=== PATIENT | female | born 1940 | race Hispanic/Latino ===

== ENCOUNTER 2018-06-22 11:09 | Inpatient (IN) | payer MEDICARE ==
[~2018-06-22] VITALS: Ht 152.4 cm; Wt 55.5 kg
--- NOTE | 2018-06-22 11:11 | NUR ---
HOME CARE MANAGER RN SERVICE OFFERED TO PATIENT. PATIENT DECLINED
--- OUTSIDE RECORDS SUMMARY | 2018-06-22 11:12 | XMS REPORT | Clinical Summary ---
Author Author [facility] Organization [facility] Address Unknown Phone Unavailable Care Team Providers Care Step Down Specialist Name Role Phone FallMateo morales Gladys PCP Allergies Comments Active Allergy Reactions Severity Noted Date Cortisone 11/24/2017 Meperidine 11/24/2017 Morphine 11/24/2017 Penicillins Swelling 11/24/2017 Medications End Date Status Medication Sig Dispensed Refills Start Date Active carboxymethylcellulose Apply to 0 sodium (REFRESH OPHT) eye(s). Active ferrous sulfate 325 (65 Take 325 mg 0 FE) MG tablet by mouth daily with breakfast. 11/24/2017 Discontinued fLUoxetine (PROZAC) 10 MG Take 10 mg by 0 capsule mouth daily. 11/24/2017 Discontinued meclizine (ANTIVERT) 25 Take 25 mg by 0 MG tablet mouth 3 (three) times daily as needed. 11/24/2017 Discontinued nystatin (MYCOSTATIN) Apply 0 100,000 unit/gram cream topically 2 (two) times daily. 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 Last Filed Vital Signs Time Taken Vital Sign Reading 11/25/2017 11:22 AM CDT Blood Pressure 107/58 11/25/2017 11:22 AM CDT Pulse 79 11/25/2017 10:52 AM CDT Temperature 36.2 C (97.2 F) 11/25/2017 11:22 AM CDT Respiratory Rate 18 11/25/2017 11:22 AM CDT Oxygen Saturation 100% - Inhaled Oxygen - Concentration 11/24/2017 10:16 AM CDT Weight 45.4 kg (100 lb) 11/24/2017 10:16 AM CDT Height 152.4 cm (5') 11/24/2017 10:16 AM CDT Body Mass Index 19.53 Plan of Treatment Not on file Procedures Comments Procedure Name Priority Date/Time Associated Diagnosis REPAIR,EXTROPIAN 11/25/2017 Ectropion, unspecified EXTENSIVE 11:41 AM CDT ectropion type, unspecified laterality after 06/21/2017 Results Not on fileafter 06/21/2017 Insurance Payer Benefit Subscriber ID Type Phone Address Plan / Group [employer] CIGNA xxxxxxxxxxx [facility] [employer] Contracted ALL
[2018-06-22] MEDS ORDERED: CEFTRIAXONE SOD 1 GM/NS 50 ML 50 ML IV STA (11:14)
[2018-06-22] MEDS ORDERED: ALBUTEROL SULF 0.083% NEB SOLN 3 ML NEB NEB STA (11:14)
[2018-06-22] MEDS ORDERED: SODIUM CHLORIDE 0.9% 500ML 500 ML IV STA (11:14)
[2018-06-22] MEDS ORDERED: IPRATROPIUM BROMIDE 0.02% 2.5 ML NEB NEB STA (11:14)
--- NOTE | 2018-06-22 12:06 | Diagnostic Imaging Report ---
EXAMINATION: PA and lateral views of the chest. COMPARISON: None CLINICAL HISTORY: Bronchitis, cough DISCUSSION: Lines/tubes: None. Lungs: The lungs are well inflated and clear. No pneumonia or pulmonary edema. Pleura: No pleural effusion or pneumothorax. Heart and mediastinum: Heart size normal. Calcified densities in the mediastinum may reflect lymph nodes. Bones and soft tissues: No acute bony abnormalities. IMPRESSION: No acute cardiopulmonary abnormalities. Signed by: Dr. Donovan Murillo M.D. on 06/22/2018 12:03 PM
[2018-06-22 12:24] LABS: BASOPHILS % 0.3 % (0.0-1.0); HEMATOCRIT 28.4 % (34.2-44.1); HEMOGLOBIN 8.8 g/dL (12.0-16.0); LYMPHOCYTES # (AUTO) 0.6 (1.0-3.2); LYMPHOCYTES % 17.4 % (18.0-39.1); MEAN CORPUSCULAR HEMOGLOBIN 31.9 pg (28-32); MEAN CORPUSCULAR VOLUME 102.9 fL (81-99); MONOCYTES # (AUTO) 0.4 (0.2-0.8); MONOCYTES % 13.7 % (4.4-11.3); NEUTROPHILS # (AUTO) 2.2 (2.1-6.9); PLATELET COUNT 167 x10e3/uL (140-360); RED BLOOD COUNT 2.76 x10e6/uL (3.6-5.1); RED CELL DISTRIBUTION WIDTH 13.3 % (11.7-14.4)
[2018-06-22 12:34] LABS: ALBUMIN 3.3 g/dL (3.5-5.0); ALBUMIN/GLOBULIN RATIO 0.9 (0.8-2.0); ANION GAP 9.6 mmol/L (8-16); CALCIUM 9.4 mg/dL (8.4-10.2); CREATININE, SERUM 0.98 mg/dL (0.57-1.11); POTASSIUM 4.6 mmol/L (3.5-5.1)
[2018-06-22] MEDS ORDERED: ACETAMINOPHEN/CODEINE ELIX 120-12 MG/5 ML UDC PO ONE (12:45)
[2018-06-22] MEDS ORDERED: ACETAMINOPHEN/CODEINE 300MG - 30MG TAB PO ONE (12:45)
[2018-06-22 12:54] LABS: CREATINE KINASE MB 1.9 ng/mL (0-5.0); INR 0.96; PROTHROMBIN TIME 13.7 seconds (11.9-14.5); THYROID STIMULATING HORMONE 2.301 uIU/mL (0.350-4.940)
[2018-06-22 12:55] LABS: PARTIAL THROMBOPLASTIN TIME 33.6 seconds (23.8-35.5)
--- OUTSIDE RECORDS SUMMARY | 2018-06-22 13:47 | XMS REPORT ---
Author Author [facility] Address Unknown Phone Unavailable Care Team Providers Care Helmet Binder Name Role Phone Facundo MILTON Unavailable Unavailable Problems This patient has no known problems. Allergies, Adverse Reactions, Alerts This patient has no known allergies or adverse reactions. Medications This patient has no known medications. Results Test Description Test Time Test Comments Text Results Atomic Results Result Comments CHEST 2 VIEWS 2018-06-22 12:02:00 [place] [address] Patient Name: AYSHA WILCOX MR #: [id number] : 1940 Age/Sex: 77/F Req #: [id number] Adm Physician: Ordered by: YASMIN SPENCER LEAD MAN OVER ALL DIES IN PATTERN SHOP Report #: [id number] Location: ER Room/Bed: Procedure: [id number] DX/CHEST 2 VIEWS Exam Date: 06/22/18 Exam Time: 1145 REPORT STATUS: Signed EXAMINATION: PA and lateral views of the chest. COM PARISON: None CLINICAL HISTORY: Bronchitis, cough DISCUSSION: Lines/tubes: None. Lungs: The lungs are well inflated and clear. No pneumonia or pulmonary edema. Pleura: No pleural effusion or pneumothorax. Heart and mediastinum: Heart size normal. Calcified densities in the mediastinum may reflect lymph nodes. Bones and soft tissues: No acute bony abnormalities. IMPRESSION: No acute cardiopulmonary abnormalities. Signed by: Dr. Veronika Gandhi M.D. on 06/22/2018 12:03 PM Dictated By: VERONIKA GANDHI MD [id number] Transcribed By: KARI on 06/22/181202 COPY TO: YASMIN SPENCER NP
--- OUTSIDE RECORDS SUMMARY | 2018-06-22 13:47 | XMS REPORT | Clinical Summary ---
Author Author [facility] Organization [facility] Address Unknown Phone Unavailable Care Team Providers Care Surveyor Helper Name Role Phone FallMateo morales Gladys PCP [...] Plan / Group [employer] C[employer] xxxxxxxxxxx [facility] [employer] Contracted ALL
[2018-06-22 13:55] LABS: CLARITY,URINE SL CLOUDY (CLEAR); COLOR,URINE YELLOW (YELLOW); KETONES,URINE NEGATIVE (NEGATIVE); LEUKOCYTE ESTERASE ,URINE NEGATIVE (NEGATIVE); NITRITE,URINE NEGATIVE (NEGATIVE); PROTEIN,URINE DIPSTICK 1+ (NEGATIVE)
[2018-06-22 13:56] LABS: BILIRUBIN,URINE NEGATIVE (NEGATIVE); URINE UROBILINOGEN 1 mg/dL (0.2 - 1)
[2018-06-22 14:10] LABS: BACTERIA,URINE MANY /HPF; EPITHELIAL CELLS,URINE MODERATE /LPF
[2018-06-22 16:25] VITALS: BP 107/53
--- NOTE | 2018-06-22 16:45 | NUR ---
Patient arrived from ER via stretcher. She is awake and alert. POC discussed with patient and grand daughter. Vital signs stable. Bed in lowest position locked, and call long within reach.
[2018-06-22] MEDS: SODIUM CHLORIDE 0.9% 1000ML 1,000 ML IV SCH ×2 (17:02→22:21)
[2018-06-22 17:46] VITALS: BP 107/53
[2018-06-22 17:58] VITALS: BP 107/53
--- NOTE | 2018-06-22 19:01 | NUR ---
Report given to oncoming shift. Call long within reach.
[2018-06-22] MEDS ORDERED: ALBUTEROL/IPRATROPIUM 3 ML NEB NEB PRN (19:15)
[2018-06-22 20:00] VITALS: BP 107/53
[2018-06-22 20:10] VITALS: BP 122/58
[2018-06-22] MEDS: BENZONATATE 100 MG CAP PO SCH (22:11)
[2018-06-22] MEDS: GUAIFENESIN/DEXTROMETHORPHAN LIQD 5 ML UDC PO SCH (22:11)
[2018-06-23] VITALS (9 sets, daily range): BP systolic 113–180; BP diastolic 56–73
[2018-06-23] MEDS: SODIUM CHLORIDE 0.9% 1000ML 1,000 ML IV SCH ×2 (04:24→20:41)
[2018-06-23 05:19] LABS: BASOPHILS % 0.3 % (0.0-1.0); EOSINOPHILS % 0.6 % (0.0-6.0); HEMATOCRIT 24.4 % (34.2-44.1); HEMOGLOBIN 7.7 g/dL (12.0-16.0); LYMPHOCYTES # (AUTO) 1.3 (1.0-3.2); LYMPHOCYTES % 36.4 % (18.0-39.1); MEAN CORPUSCULAR HEMOGLOBIN 32.6 pg (28-32); MEAN CORPUSCULAR HGB CONC 31.6 g/dL (31-35); MEAN CORPUSCULAR VOLUME 103.4 fL (81-99); MONOCYTES # (AUTO) 0.5 (0.2-0.8); MONOCYTES % 13.2 % (4.4-11.3); NEUTROPHILS # (AUTO) 1.7 (2.1-6.9); NEUTROPHILS % 48.6 % (38.7-80.0); PLATELET COUNT 155 x10e3/uL (140-360); RED BLOOD COUNT 2.36 x10e6/uL (3.6-5.1); RED CELL DISTRIBUTION WIDTH 13.2 % (11.7-14.4)
[2018-06-23 05:40] LABS: ALANINE AMINOTRANSFERASE 16 IU/L (0-55); ALBUMIN 2.9 g/dL (3.5-5.0); ALKALINE PHOSPHATASE 49 IU/L (40-150); ANION GAP 10.9 mmol/L (8-16); BLOOD UREA NITROGEN 17 mg/dL (7-26); BUN/CREATININE RATIO 22 (6-25); CALCIUM 8.6 mg/dL (8.4-10.2); CARBON DIOXIDE 27 mmol/L (22-29); CHLORIDE 103 mmol/L (98-107); CREATININE, SERUM 0.78 mg/dL (0.57-1.11); EST GLOMERULAR FILTRATION RATE > 60 ML/MIN (60-); GLUCOSE 98 mg/dL (74-118); POTASSIUM 3.9 mmol/L (3.5-5.1); SODIUM 137 mmol/L (136-145)
[2018-06-23] MEDS: GUAIFENESIN/DEXTROMETHORPHAN LIQD 5 ML UDC PO SCH ×3 (05:42→22:00)
[2018-06-23] MEDS: BENZONATATE 100 MG CAP PO SCH ×3 (05:42→22:00)
--- NOTE | 2018-06-23 06:48 | History and Physical ---
PRIMARY CARE PHYSICIAN: Dr. Fall CHIEF COMPLAINT: Cough, shortness of breath and wheezing. HISTORY OF PRESENT ILLNESS: A 77-year-old woman with a history of cigarette use, now developing cough, shortness of breath and wheezing. Came to the hospital for evaluation and found to have influenza A. She is admitted for further evaluation and management. PAST MEDICAL HISTORY: Cigarette use, osteoarthritis. PAST SURGICAL HISTORY: Carpal tunnel release surgery, eye surgery, and appendectomy. ALLERGIES: PER ELECTRONIC MEDICAL RECORD. FAMILY HISTORY/SOCIAL HISTORY: Patient is . She smokes half a pack of cigarettes per day. Occasional alcohol. No illicits. MEDICATIONS: Per electronic medical record. REVIEW OF SYSTEMS: Denies any chest pain. Denies any leg pain, back pain, skin rash. Denies any vision changes. Denies any headache. PHYSICAL EXAMINATION VITAL SIGNS: Have been reviewed. GENERAL: A tired-appearing woman resting in bed. HEENT: Anicteric. Pupils respond to light. No oral lesions. CARDIOVASCULAR: Normal S1 and S2. LUNGS: She has reduced breath sounds throughout. She has scattered wheezing and rhonchi. SKIN: Dry. PSYCHIATRIC: Flat affect. NEUROLOGICAL: Alert and oriented times 3. Moving extremities. LABS: Reviewed. MEDICATIONS: Reviewed. ASSESSMENT: This is a 77-year-old woman with: 1. Acute influenza A infection. 2. Acute bronchitis. 3. Cigarette use. 4. Acute kidney injury. 5. Hyperbilirubinemia. 6. Hyponatremia. 7. Microcytic anemia which is moderate. 8. Urinary tract infection. PLAN 1. Rehydrate the patient. We will reduce the IV fluids to 60 mL an hour. 2. Will use IV azithromycin. 3. Will treat her cough with antitussive medication. 4. Will start Tamiflu. 5. Will start loratadine. 6. Will use zinc lozenges. 7. Order physical therapy. 8. Will obtain an anemia panel. 9. Will use SCD for DVT prophylaxis and Pepcid for GI prophylaxis. 10. Disposition. Monitor closely. Supplemental oxygen. Job#: [id number] [place]
[2018-06-23] MEDS: LEVOFLOXACIN 500MG/D5W 100ML 100 ML IV SCH (06:55)
[2018-06-23] MEDS: FAMOTIDINE 20 MG TAB PO SCH ×2 (07:34→16:06)
[2018-06-23] MEDS: AZITHROMYCIN 500MG/NS 250 ML 250 ML IV SCH (07:34)
[2018-06-23] MEDS: LORATADINE 10 MG TAB PO SCH (08:11)
[2018-06-23] MEDS ORDERED: OSELTAMIVIR PHOSPHATE 75 MG CAP PO SCH (09:00)
[2018-06-23 09:05] LABS: FERRITIN 37708.52 ng/mL (4.63-204.00)
--- NOTE | 2018-06-23 10:15 | NUR ---
Called Dr. Brayden Diaz informed him patient brought her own Tamiflu capsule, and is requesting to take her own medication. Received orders patient may take her own Tamiflu.
--- NOTE | 2018-06-23 10:50 | NUR ---
SOCIAL WORK INITIAL ASSESSMENT USED CULTURAL LINK [place] [id number] Ski Molder to bedside to discuss plan of care with patient/family. CM/SW role and care transitions discussed. Anticipated discharge plan discussed along with duration of care. CM/SW discussed patients right to make decisions in care. CM/SW work hours given. Patient lives: IN OWN TOWNHOUSE BY SELF Admit/Transfer: VIA ED FROM HOME POA/Emergency contact: SON HERBERTH [phone] AND GRANDSON HERBERTH BIRD [phone] Current/Previous Home Health: NONE PCP/Follow-up Care: CORIN Current/Previous DME: NONE Other Services: NONE Employment Status: RETIRED Areas of Concerns: NONE Referral Needs: NONE Education Needs: NONE IMM/HARDEN given and signed (if applicable): HARDEN Goal for discharge: RETURN HOME INDEPENDENTLY CM/SW left business card at the bedside with contact information. Name and number was also written on the patients whiteboard. Patient verbalized understanding of discussion. CM will follow-up with ongoing discharge and transition of care needs.
[2018-06-23] MEDS: OSELTAMIVIR PHOSPHATE 75 MG CAP PO SCH (17:34)
--- NOTE | 2018-06-23 19:10 | NUR ---
REPORT RECEIVED FROM OFF GOING NURSE, PT RESTING IN BED ALERT AND ORIENTED, NO DISTRESS NOTED, DENIES NEEDS, FAMILY AT BEDSIDE, CALL LIGHT IN REACH, INSTRUCTED TO CALL WITH NEEDS
[2018-06-24] VITALS (8 sets, daily range): BP systolic 110–170; BP diastolic 55–78
[2018-06-24] MEDS: GUAIFENESIN/DEXTROMETHORPHAN LIQD 5 ML UDC PO SCH ×3 (06:00→21:55)
[2018-06-24] MEDS: BENZONATATE 100 MG CAP PO SCH ×3 (06:00→21:55)
[2018-06-24] MEDS: AZITHROMYCIN 500MG/NS 250 ML 250 ML IV SCH (06:30)
--- NOTE | 2018-06-24 07:00 | NUR ---
PT RESTING IN BED ALERT AND ORIENTED, NO DISTRESS NOTED, IV INFUSING PER ORDER, CALL LIGHT IN REACH, BED ALARM ACTIVATED, INSTRUCTED TO CALL WITH NEEDS
--- NOTE | 2018-06-24 07:18 | NUR ---
Discharge Summary Principal Dx: ASSESSMENT: This is a 77-year-old woman with: 1. Acute influenza A infection. 2. Acute bronchitis. 3. Cigarette use. 4. Acute kidney injury. 5. Hyperbilirubinemia. 6. Hyponatremia. 7. Microcytic anemia which is moderate. 8. Urinary tract infection. Secondary dx: 1.cig use cc and HPI; refer to H&P Hospital Course: ASSESSMENT: This is a 77-year-old woman with: 1. Acute influenza A infection. 2. Acute bronchitis. 3. Cigarette use. 4. Acute kidney injury. 5. Hyperbilirubinemia. 6. Hyponatremia. 7. Microcytic anemia which is moderate. 8. Urinary tract infection. PLAN 1. Rehydrate the patient. We will reduce the IV fluids to 60 mL an hour. 2. Will use IV azithromycin. 3. Will treat her cough with antitussive medication. 4. Will start Tamiflu. 5. Will start loratadine. 6. Will use zinc lozenges. 7. Order physical therapy. 8. Will obtain an anemia panel. 9. Will use SCD for DVT prophylaxis and Pepcid for GI prophylaxis. 10. Disposition. Monitor closely. Supplemental oxygen. Anemia panel normal; T.bili back to normal; d/c home; d/c location: home d/c meds; see MAR condition: improving f/u PCP 1 week d/c time>35mins Michelet Diaz MD, PhD.
[2018-06-24] MEDS ORDERED: Guaifenesin/Dextromethorphan PO (07:20)
[2018-06-24] MEDS ORDERED: LEVAQUIN500 MG PO (07:20)
[2018-06-24] MEDS ORDERED: TAMIFLU75 MG PO (07:20)
[2018-06-24] MEDS ORDERED: TESSALON PERLE100 MG PO (07:20)
[2018-06-24] MEDS ORDERED: FAMOTIDINE20 MG PO (07:20)
[2018-06-24] MEDS: FAMOTIDINE 20 MG TAB PO SCH ×2 (08:05→16:14)
[2018-06-24] MEDS: LORATADINE 10 MG TAB PO SCH (08:05)
[2018-06-24 08:07] LABS: BASOPHILS % 0.4 % (0.0-1.0); EOSINOPHILS # (AUTO) 0.1 (0.0-0.4); EOSINOPHILS % 1.7 % (0.0-6.0); HEMATOCRIT 26.1 % (34.2-44.1); LYMPHOCYTES # (AUTO) 1.8 (1.0-3.2); LYMPHOCYTES % 39.4 % (18.0-39.1); MEAN CORPUSCULAR HEMOGLOBIN 31.5 pg (28-32); MEAN CORPUSCULAR HGB CONC 30.7 g/dL (31-35); MEAN CORPUSCULAR VOLUME 102.8 fL (81-99); MONOCYTES # (AUTO) 0.5 (0.2-0.8); NEUTROPHILS # (AUTO) 2.2 (2.1-6.9); NEUTROPHILS % 46.6 % (38.7-80.0); PLATELET COUNT 165 x10e3/uL (140-360); RED BLOOD COUNT 2.54 x10e6/uL (3.6-5.1); RED CELL DISTRIBUTION WIDTH 13.2 % (11.7-14.4)
--- NOTE | 2018-06-24 08:10 | NUR ---
New verbal order recvd from Dr Diaz to DC Discharge order
[2018-06-24 08:29] LABS: EOSINOPHILS % (MANUAL) 3 % (0-7); LYMPHOCYTES % (MANUAL) 46 % (19-48); MONOCYTES % (MANUAL) 6 % (3.4-9.0); NEUTROPHILS % (MANUAL) 39 % (40-74); PLATELET ESTIMATE ADEQUATE; PLATELET MORPHOLOGY COMMENT NORMAL; RBC MORPHOLOGY COMMENT ABNORMAL
[2018-06-24] MEDS: OSELTAMIVIR PHOSPHATE 75 MG CAP PO SCH ×2 (09:00→16:14)
[2018-06-24] MEDS: LEVOFLOXACIN 500MG/D5W 100ML 100 ML IV SCH (10:32)
[2018-06-24] MEDS ORDERED: ACETAMINOPHEN 325 MG TAB PO PRN (15:30)
--- NOTE | 2018-06-24 15:32 | NUR ---
Patient c/o lower abdominal pain rating 6/10, no tenderness, notified to Dr Joe hawley recvd.
--- NOTE | 2018-06-24 18:51 | NUR ---
patient in bed, watching TV, denies any pain no distress noted
[2018-06-24] MEDS: SODIUM CHLORIDE 0.9% 1000ML 1,000 ML IV SCH (21:55)
[2018-06-24] MEDS: CALCIUM CARBONATE 500 MG CHEWABLE TABS PO SCH (21:55)
[2018-06-25 01:45] VITALS: BP 113/56
--- NOTE | 2018-06-25 04:36 | NUR ---
IM- Progress Note O/N ;still coughing; sob REVIEW OF SYSTEMS: Denies any chest pain. Denies any leg pain, back pain, skin rash. Denies any vision changes. Denies any headache. PHYSICAL EXAMINATION VITAL SIGNS: Have been reviewed. GENERAL: A tired-appearing woman resting in bed. HEENT: Anicteric. Pupils respond to light. No oral lesions. CARDIOVASCULAR: Normal S1 and S2. LUNGS: She has reduced breath sounds throughout. She has scattered wheezing and rhonchi. SKIN: Dry. PSYCHIATRIC: Flat affect. NEUROLOGICAL: Alert and oriented times 3. Moving extremities. LABS: Reviewed. MEDICATIONS: Reviewed. ASSESSMENT: This is a 77-year-old woman with: 1. Acute influenza A infection. 2. Acute bronchitis. 3. Cigarette use. 4. Acute kidney injury. 5. Hyperbilirubinemia. 6. Hyponatremia. 7. Microcytic anemia which is moderate. 8. Urinary tract infection. PLAN 1. Rehydrate the patient. We will reduce the IV fluids to 60 mL an hour. 2. Will use IV azithromycin. 3. Will treat her cough with antitussive medication. 4. Will start Tamiflu. 5. Will start loratadine. 6. Will use zinc lozenges. 7. Order physical therapy. 8. Will obtain an anemia panel. 9. Will use SCD for DVT prophylaxis and Pepcid for GI prophylaxis. 10. Disposition. Monitor closely. Supplemental oxygen. 06/24/18 still sob and coughing; keep in hospital for IV tx. 06/25 start nebs and chlorseptic spray; inpatient; cont care Michelet Diaz MD, PhD.
[2018-06-25] MEDS: LEVOFLOXACIN 500MG/D5W 100ML 100 ML IV SCH (05:25)
[2018-06-25] MEDS: SODIUM CHLORIDE 0.9% 1000ML 1,000 ML IV SCH ×2 (05:25→21:00)
[2018-06-25] MEDS: CALCIUM CARBONATE 500 MG CHEWABLE TABS PO SCH ×3 (05:25→21:40)
[2018-06-25] MEDS: BENZONATATE 100 MG CAP PO SCH ×3 (05:25→21:40)
[2018-06-25] MEDS: GUAIFENESIN/DEXTROMETHORPHAN LIQD 5 ML UDC PO SCH ×3 (05:25→21:40)
[2018-06-25] MEDS ORDERED: CHLORASEPTIC SPRAY 177 ML BTL MM PRN (06:00)
[2018-06-25 06:05] VITALS: BP 120/67
[2018-06-25] MEDS: AZITHROMYCIN 500MG/NS 250 ML 250 ML IV SCH (06:38)
[2018-06-25] MEDS: ALBUTEROL/IPRATROPIUM 3 ML NEB NEB SCH ×3 (06:51→19:35)
--- NOTE | 2018-06-25 07:02 | NUR ---
Received patient mid fowlers position, side rails upx3, call light within reach. AAOX3 to time, person, place. Respirations even and unlabored. Denies pain at this time. Instructed to use call light for assistance. Voiced understanding. Will continue to monitor.
[2018-06-25 07:25] VITALS: BP 122/69
[2018-06-25] MEDS: LORATADINE 10 MG TAB PO SCH (07:58)
[2018-06-25] MEDS: OSELTAMIVIR PHOSPHATE 75 MG CAP PO SCH ×2 (07:58→16:14)
[2018-06-25] MEDS: FAMOTIDINE 20 MG TAB PO SCH ×2 (07:58→16:14)
[2018-06-25 11:24] VITALS: BP 155/73
--- NOTE | 2018-06-25 13:25 | NUR ---
report received from Kristine. Patient arriving to unit on wheelchair
--- NOTE | 2018-06-25 13:30 | NUR ---
patient arrived on floor via wheelchair, alert and oriented in no distress. Call long within reach, bed in lowest position and family at bedside.
--- NOTE | 2018-06-25 14:26 | NUR ---
Report given to Essie DILLON of patient's status. Taken via wheelchair to Room 209. Accompanied by family member. AAOX3 to time, person, place. No s/s of acute distress noted.All personal belongings taken with patient. Notified Castillo (next of kin) of transfer. Addendum: 06/25/18 at 1510 by MARK YBARRA RN Transferred to 209 at 1326
--- NOTE | 2018-06-25 14:45 | NUR ---
Visit made by the Spiritual Care Department Pastoral Visitor, Carolyn Ignacio. PV provided pastoral presence, communion, hospitality, and supportive listening. Pastoral Visitor informed pt/family of the scope of Global Marketing Operations Manager Services and availability. YASIR MONSIVAIS Instructional Services Specialist Spiritual Care Department O: [phone] Pager: [phone] ([phone] number calling from)
[2018-06-25 15:54] VITALS: BP 97/53
--- NOTE | 2018-06-25 19:15 | NUR ---
report given to night baker nurse, patient aware of shift change and call long within reach.
--- NOTE | 2018-06-25 19:59 | NUR ---
PATIENT RECEIVED. PATIENT RESTING IN BED, AAOX3. RESP EVEN AND UNLABORED. NO ACTE DISTRESS NOTED. FAMILY AT BED SIDE. CALL LIGHT WITHIN REACH. INSTRUCT TO CALL FOR ASSISTANCE. BED LOW/LOCKED. CONTINUE TO MONITOR CLOSELY
[2018-06-25 20:00] VITALS: BP 133/63
[2018-06-26] VITALS (8 sets, daily range): BP systolic 97–133; BP diastolic 48–63
[2018-06-26] MEDS: ALBUTEROL/IPRATROPIUM 3 ML NEB NEB SCH ×4 (00:45→20:15)
[2018-06-26] MEDS: GUAIFENESIN/DEXTROMETHORPHAN LIQD 5 ML UDC PO SCH ×3 (05:36→20:49)
[2018-06-26] MEDS: CALCIUM CARBONATE 500 MG CHEWABLE TABS PO SCH ×3 (05:36→20:49)
[2018-06-26] MEDS: BENZONATATE 100 MG CAP PO SCH ×3 (05:36→20:49)
[2018-06-26] MEDS: LEVOFLOXACIN 500MG/D5W 100ML 100 ML IV SCH (05:37)
[2018-06-26] MEDS: AZITHROMYCIN 500MG/NS 250 ML 250 ML IV SCH (06:49)
[2018-06-26 08:42] LABS: BASOPHILS % 0.2 % (0.0-1.0); EOSINOPHILS # (AUTO) 0.2 (0.0-0.4); EOSINOPHILS % 3.6 % (0.0-6.0); HEMOGLOBIN 7.5 g/dL (12.0-16.0); LYMPHOCYTES # (AUTO) 1.3 (1.0-3.2); LYMPHOCYTES % 24.9 % (18.0-39.1); MEAN CORPUSCULAR HEMOGLOBIN 33.2 pg (28-32); MEAN CORPUSCULAR HGB CONC 32.9 g/dL (31-35); MEAN CORPUSCULAR VOLUME 100.9 fL (81-99); MONOCYTES # (AUTO) 0.6 (0.2-0.8); MONOCYTES % 10.8 % (4.4-11.3); NEUTROPHILS # (AUTO) 3.1 (2.1-6.9); NEUTROPHILS % 59.2 % (38.7-80.0); PLATELET COUNT 213 x10e3/uL (140-360); RED BLOOD COUNT 2.26 x10e6/uL (3.6-5.1); RED CELL DISTRIBUTION WIDTH 13.7 % (11.7-14.4)
[2018-06-26 08:47] LABS: HEMATOCRIT 22.8 % (34.2-44.1)
[2018-06-26] MEDS: LORATADINE 10 MG TAB PO SCH (08:52)
[2018-06-26] MEDS: FAMOTIDINE 20 MG TAB PO SCH ×2 (08:52→17:10)
[2018-06-26] MEDS: OSELTAMIVIR PHOSPHATE 75 MG CAP PO SCH ×2 (08:52→17:10)
[2018-06-26 09:01] LABS: ANION GAP 12.6 mmol/L (8-16); BLOOD UREA NITROGEN 8 mg/dL (7-26); BUN/CREATININE RATIO 10 (6-25); CALCIUM 8.5 mg/dL (8.4-10.2); CARBON DIOXIDE 28 mmol/L (22-29); CHLORIDE 103 mmol/L (98-107); CREATININE, SERUM 0.79 mg/dL (0.57-1.11); EST GLOMERULAR FILTRATION RATE > 60 ML/MIN (60-); GLUCOSE 110 mg/dL (74-118); POTASSIUM 3.6 mmol/L (3.5-5.1); SODIUM 140 mmol/L (136-145)
--- NOTE | 2018-06-26 09:52 | NUR ---
notified of Hgb 7.5, no new orders received at this time.
[2018-06-26 10:46] LABS: EOSINOPHILS % (MANUAL) 6 % (0-7); LYMPHOCYTES % (MANUAL) 39 % (19-48); MONOCYTES % (MANUAL) 11 % (3.4-9.0); NEUTROPHILS % (MANUAL) 41 % (40-74)
[2018-06-26 10:47] LABS: ANISOCYTOSIS SLIGHT; HYPOCHROMASIA MODERATE; PLATELET ESTIMATE ADEQUATE; PLATELET MORPHOLOGY COMMENT NORMAL; POIKILOCYTOSIS SLIGHT; RBC MORPHOLOGY COMMENT NORMAL
[2018-06-26] MEDS: SODIUM CHLORIDE 0.9% 1000ML 1,000 ML IV SCH (13:34)
--- NOTE | 2018-06-26 19:21 | NUR ---
bedside rounds done with oncoming RN, call light within patient reach. family at bedside.
--- NOTE | 2018-06-26 19:30 | NUR ---
PATIENT RECEIVED. PATIENT RESTING IN BED, AAOX3. RESP EVEN AND UNLABORED. NO ACTE DISTRESS NOTED. CALL LIGHT WITHIN REACH. INSTRUCT TO CALL FOR ASSISTANCE. BED LOW/LOCKED. CONTINUE TO MONITOR CLOSELY
[2018-06-27] VITALS: BP 124/58
[2018-06-27] MEDS: ALBUTEROL/IPRATROPIUM 3 ML NEB NEB SCH ×2 (00:30→07:00)
[2018-06-27] MEDS: CALCIUM CARBONATE 500 MG CHEWABLE TABS PO SCH (05:13)
[2018-06-27] MEDS: BENZONATATE 100 MG CAP PO SCH (05:13)
[2018-06-27] MEDS: AZITHROMYCIN 500MG/NS 250 ML 250 ML IV SCH (05:13)
[2018-06-27] MEDS: GUAIFENESIN/DEXTROMETHORPHAN LIQD 5 ML UDC PO SCH (05:13)
[2018-06-27] MEDS: LEVOFLOXACIN 500MG/D5W 100ML 100 ML IV SCH (06:28)
--- NOTE | 2018-06-27 07:05 | NUR ---
RCD PT AT BED PT IS ALERT AND ORIENTED PT RESTING ON BED IV PATENT BED LOW AND LOCKED CALL LIGHT IN REACH
--- NOTE | 2018-06-27 07:15 | NUR ---
IM- Progress Note O/N ;still coughing; sob REVIEW OF SYSTEMS: Denies any chest pain. Denies any leg pain, back pain, skin rash. Denies any vision changes. Denies any headache. PHYSICAL EXAMINATION VITAL SIGNS: Have been reviewed. GENERAL: A tired-appearing woman resting in bed. HEENT: Anicteric. Pupils respond to light. No oral lesions. CARDIOVASCULAR: Normal S1 and S2. LUNGS: She has reduced breath sounds throughout. She has scattered wheezing and rhonchi. SKIN: Dry. PSYCHIATRIC: Flat affect. NEUROLOGICAL: Alert and oriented times 3. Moving extremities. LABS: Reviewed. MEDICATIONS: Reviewed. ASSESSMENT: This is a 77-year-old woman with: 1. Acute influenza A infection. 2. Acute bronchitis. 3. Cigarette use. 4. Acute kidney injury. 5. Hyperbilirubinemia. 6. Hyponatremia. 7. Microcytic anemia which is moderate. 8. Urinary tract infection. PLAN 1. Rehydrate the patient. We will reduce the IV fluids to 60 mL an hour. 2. Will use IV azithromycin. 3. Will treat her cough with antitussive medication. 4. Will start Tamiflu. 5. Will start loratadine. 6. Will use zinc lozenges. 7. Order physical therapy. 8. Will obtain an anemia panel. 9. Will use SCD for DVT prophylaxis and Pepcid for GI prophylaxis. 10. Disposition. Monitor closely. Supplemental oxygen. 06/24/18 still sob and coughing; keep in hospital for IV tx. 06/25 start nebs and chlorseptic spray; inpatient; cont care 06/26 improving; d/w grandson at bedside 06/27 still quite deconditioned and coughing; snf eval. Michelet Diaz MD, PhD.
[2018-06-27] MEDS: FAMOTIDINE 20 MG TAB PO SCH (07:30)
[2018-06-27 08:00] VITALS: BP 124/58
[2018-06-27] MEDS: SODIUM CHLORIDE 0.9% 1000ML 1,000 ML IV SCH (08:01)
[2018-06-27 08:53] VITALS: BP 144/65
[2018-06-27] MEDS: OSELTAMIVIR PHOSPHATE 75 MG CAP PO SCH (09:00)
[2018-06-27] MEDS: LORATADINE 10 MG TAB PO SCH (09:00)
--- NOTE | 2018-06-27 09:30 | NUR ---
SON CAME AND ASKED WE NEED TO GO HOME WE DONT NEED ANY [facility] FACILITY SO PAGED AND TALKED DR QUEZADA HE AGREED AND GOT THE DISCHARGE ORDER
--- NOTE | 2018-06-27 11:19 | NUR ---
FILIPINO IMM GIVEN WITH EXPLANATION. PATIENT WITH NO QUESTIONS AT THIS TIME. SIGNED COPY PLACED IN CHART. COPY OF SIGNED DOCUMENT GIVEN TO PATIENT AND PLACED IN FOLDER. CM INFORMATION GIVEN TO PATIENT FOR ANY FURTHER QUESTIONS OR CONCERNS.
[2018-06-27 12:28] VITALS: BP 141/65
--- NOTE | 2018-06-27 13:02 | NUR ---
CM SPOKE TO PATIENT FAMILY REGARDING DISCHARGE NEEDS. PATIENT REFUSED PLACEMENT TO A FACILITY BUT WANTED HOME HEALTH SERVICES FOR BATHING AND LIGHT HOUSE WORK. PATIENT AND PATIENT FAMILY INFORMED THAT HOME HEALTH DOES NOT SERVICES THOSE TASKS. PATIENT AND PATIENT FAMILY EDUCATED ON HOME HEALTH SERVICES AND PROVIDER SERVICES. CM GAVE FAMILY RESOURCES GUIDE FOR ASSISTED WELL RESOURCES TO A COMPANY FOR 4 HOUR FREE PROVIDER CARE. PATIENT FAMILY THANKED CM. NO FURTHER QUESTIONS AT THIS TIME. CM LEFT CONTACT INFORMATION FOR FURTHER QUESTIONS. PATIENT GRAND-DAUGHTER AND PATIENT FRIEND CALLING MD NOW FOR FOLLOW UP APPOINTMENT FOR Tuesday.
--- NOTE | 2018-06-27 13:11 | NUR ---
PT WENT HOME IN SAFE CONDITION WITH HER DAUGHTER
== END 2018-06-27 13:00 | disposition home or self-care (01) | DRG 194 ==
LOC: ER 11:09 → ERHOLD 13:44 → IMCU 16:30 → OBSVTOIN 06-25 04:56 → MED/SURG2 06-25 13:28
PROVIDERS: ADMIT Internal Medicine; ATTEND Internal Medicine
DX: J09.X2 Influenza due to identified novel influenza A virus with other respiratory manifestations (principal); N17.9 Acute kidney failure, unspecified; E87.1 Hypo-osmolality and hyponatremia; N39.0 Urinary tract infection, site not specified; J20.9 Acute bronchitis, unspecified; Z72.0 Tobacco use; E80.6 Other disorders of bilirubin metabolism; D50.9 Iron deficiency anemia, unspecified; Z88.5 Allergy status to narcotic agent; Z88.0 Allergy status to penicillin; Z88.8 Allergy status to other drugs, medicaments and biological substances
CPT/HCPCS: 36415; 71046; 80048; 80053; 81001; 82550; 82553; 82607; 82728; 83540; 83605; 83690; 84443; 84466; 84484; 85025; 85610; 85730; 87040; 87086; 87400; 93005; 94640; 96361; 97139; 99284; G0378; J0456; J0696; J1956; J7030; J7040

== ENCOUNTER → 2019-07-18 | Day surgery (SDC) | payer MEDICARE ==
[2019-07-16 13:46] LABS: BASOPHILS # (AUTO) 0.1 (0.0-0.1); BASOPHILS % 0.7 % (0.0-1.0); EOSINOPHILS # (AUTO) 0.1 (0.0-0.4); EOSINOPHILS % 1.2 % (0.0-6.0); HEMATOCRIT 33.2 % (34.2-44.1); HEMOGLOBIN 10.2 g/dL (12.0-16.0); LYMPHOCYTES # (AUTO) 1.6 (1.0-3.2); LYMPHOCYTES % 19.9 % (18.0-39.1); MEAN CORPUSCULAR HEMOGLOBIN 32.4 pg (28-32); MEAN CORPUSCULAR HGB CONC 30.7 g/dL (31-35); MEAN CORPUSCULAR VOLUME 105.4 fL (81-99); MONOCYTES # (AUTO) 0.6 (0.2-0.8); MONOCYTES % 7.6 % (4.4-11.3); NEUTROPHILS # (AUTO) 5.8 (2.1-6.9); NEUTROPHILS % 70.4 % (38.7-80.0); PLATELET COUNT 273 x10e3/uL (140-360); RED BLOOD COUNT 3.15 x10e6/uL (3.6-5.1); RED CELL DISTRIBUTION WIDTH 13.6 % (11.7-14.4)
[~2019-07-18] MED LIST: BUPIVACAINE HCL 0.5% INJ 30 ML VIAL INJ ONE; CLINDAMYCIN PHOS 900MG/ 50ML 50 ML IV ONE; DEXAMETHASONE SOD PHOS INJ 4 MG/ML VIAL ONE; EPHEDRINE SULFATE INJ 50 MG/ML VIAL ONE; EYE DROPS15 M1; FAMOTIDINE20 MG PO; FENTANYL CITRATE/PF 100MCG/2 ML INJ ONE; Guaifenesin/Dextromethorphan PO; LEVAQUIN500 MG PO; LIDOCAINE HCL 2% LOCAL INJ 5 ML SDV VIAL INJ ONE; ONDANSETRON HCL INJ 2MG/ML 2ML 2 MG/ML VIAL ONE; PROPOFOL IV EMULSION 10 MG/ML 20 ML VIAL ONE; SEVOFLURANE INHAL SOLN 250 ML PEN BTL ONE; TAMIFLU75 MG PO; TESSALON PERLE100 MG PO
[2019-07-18 10:35] VITALS: BP 116/61
--- NOTE | 2019-07-27 23:29 | Operative Report ---
DATE OF PROCEDURE: 07/18/2019 SURGEON: Marck Weathers MD PREOPERATIVE DIAGNOSIS: Right index and ring finger trigger fingers. POSTOPERATIVE DIAGNOSIS: Right index and ring finger trigger fingers. OPERATIONS AND PROCEDURES PERFORMED: The patient underwent: 1. Release of the right index finger trigger finger. 2. Release of the right ring finger trigger. TOXICS PROGRAM OFFICER: JEFF Stanley ANESTHESIA: General endotracheal intubation anesthesia. IV FLUIDS: Per the anesthesia record. BRIEF DESCRIPTION OF THE PATIENT'S OPERATIVE PROCEDURE: Ms. Chance was taken the operating room, placed in supine position on the operating table. Following induction of general anesthesia as well as endotracheal intubation, the patient's right upper extremity was examined under anesthesia. She was found to have a normal-appearing hand. Flexion, extension of the index and ring fingers, however, were found catching and locking of the fingers with passive range of motion of fingers. The patient had palpable nodules at the level of the A1 mike for the index finger and the ring finger. The patient's upper extremity was prepped and draped in a standard surgical fashion. The case was began by creating an incision over the A1 mike for the index finger. This incision was carried through skin only. Blunt dissection was used to deepen the incision and the retractors were inserted into the wound to protect vital neurovascular structures. The flexor tendon was thereby isolated and the A1 mike was easily identified. The A1 mike was then incised in line with the skin incision releasing the mike completely. The finger was then placed through range of motion and the tendon no longer caught or locked. Evaluation of the tendon demonstrated no gross abnormalities other than nodular tenosynovitis. This wound was copiously irrigated and closed in a single layer fashion. Attention was then turned to the patient's ring finger. The skin was incised overlying the A1 mike. This incision again was carried through skin only. Blunt dissection was used to deepen the incision to the level of the flexor tendon in the A1 mike. Retractors were placed in the wound, protecting the vital neurovascular structures. The A1 mike was then incised in line with the skin incision. The finger was placed through range of motion. There was no further mechanical block to motion of the finger. The tendon was evaluated and found to have nodular tenosynovitis. There were no other gross abnormalities. This wound was irrigated and closed in a single layer fashion. Sterile dressings were applied and the patient was then awakened and taken to postanesthesia care in stable condition. Migdalia Kang was necessary as family readiness support assistant for this case, both prepping and draping the patient as well as retraction of soft tissue and closure of the wound to allow this case to be successful. MD PAULETTE Carlos/ENEDELIA /[id number]
== END | disposition home or self-care (01) ==
LOC: OR 06:11
PROVIDERS: ATTEND Specialist
DX: M65.321 Trigger finger, right index finger (principal); M65.341 Trigger finger, right ring finger; M19.041 Primary osteoarthritis, right hand; M81.0 Age-related osteoporosis without current pathological fracture; I10 Essential (primary) hypertension; D64.9 Anemia, unspecified; F17.210 Nicotine dependence, cigarettes, uncomplicated; Z88.6 Allergy status to analgesic agent; Z88.0 Allergy status to penicillin; Z88.8 Allergy status to other drugs, medicaments and biological substances; Z01.812 Encounter for preprocedural laboratory examination
CPT/HCPCS: 26055 ×2; 36415; 85025; J1100; J2001; J2405; J2704; J3010

== ENCOUNTER 2023-04-02 19:48 | Inpatient (IN) | payer MEDICARE ==
[~2023-04-02] VITALS: Ht 152.4 cm; Wt 32.7 kg
[~2023-04-02 19:48] MED LIST changes: -BUPIVACAINE HCL 0.5% INJ 30 ML VIAL INJ ONE; -CLINDAMYCIN PHOS 900MG/ 50ML 50 ML IV ONE; -DEXAMETHASONE SOD PHOS INJ 4 MG/ML VIAL ONE; -EPHEDRINE SULFATE INJ 50 MG/ML VIAL ONE; -FENTANYL CITRATE/PF 100MCG/2 ML INJ ONE; -LIDOCAINE HCL 2% LOCAL INJ 5 ML SDV VIAL INJ ONE; -ONDANSETRON HCL INJ 2MG/ML 2ML 2 MG/ML VIAL ONE; -PROPOFOL IV EMULSION 10 MG/ML 20 ML VIAL ONE; -SEVOFLURANE INHAL SOLN 250 ML PEN BTL ONE
[2023-04-02] MEDS ORDERED: SODIUM CHLORIDE 0.9% 500ML 500 ML IV ONE (20:00)
[2023-04-02 20:17] LABS: BASOPHILS % 0.5 % (0.0-1.0); EOSINOPHILS # (AUTO) 0.1 (0.0-0.4); EOSINOPHILS % 1.8 % (0.0-6.0); HEMATOCRIT 29.4 % (34.2-44.1); HEMOGLOBIN 9.4 g/dL (12.0-16.0); LYMPHOCYTES # (AUTO) 1.6 (1.0-3.2); LYMPHOCYTES % 20.5 % (18.0-39.1); MEAN CORPUSCULAR HEMOGLOBIN 33.1 pg (28-32); MEAN CORPUSCULAR VOLUME 103.5 fL (81-99); MONOCYTES # (AUTO) 0.9 (0.2-0.8); MONOCYTES % 10.9 % (4.4-11.3); NEUTROPHILS # (AUTO) 5.2 (2.1-6.9); PLATELET COUNT 249 x10e3/uL (140-360); RED BLOOD COUNT 2.84 x10e6/uL (3.6-5.1); RED CELL DISTRIBUTION WIDTH 14.1 % (11.7-14.4); WHITE BLOOD COUNT 7.86 x10e3/uL (4.8-10.8)
[2023-04-02 20:38] LABS: ALBUMIN 3.8 g/dL (3.5-5.0); ALBUMIN/GLOBULIN RATIO 1.1 (0.8-2.0); ANION GAP 15.4 mmol/L (8-16); CREATININE, SERUM 1.89 mg/dL (0.57-1.11)
[2023-04-02 20:43] LABS: CLARITY,URINE CLEAR (CLEAR); COLOR,URINE YELLOW (YELLOW); LEUKOCYTE ESTERASE ,URINE TRACE (NEGATIVE)
[2023-04-02 20:44] LABS: KETONES,URINE NEGATIVE (NEGATIVE); NITRITE,URINE NEGATIVE (NEGATIVE); PROTEIN,URINE DIPSTICK NEGATIVE (NEGATIVE); URINE UROBILINOGEN 0.2 mg/dL (0.2 - 1)
[2023-04-02 20:48] LABS: POTASSIUM 6.4 mmol/L (3.5-5.1)
[2023-04-02 21:19] LABS: BACTERIA,URINE MODERATE /HPF; EPITHELIAL CELLS,URINE MANY /LPF
[2023-04-02 21:31] LABS: ANION GAP 14.8 mmol/L (8-16); CREATININE, SERUM 1.95 mg/dL (0.57-1.11)
[2023-04-02 21:33] LABS: POTASSIUM 6.8 mmol/L (3.5-5.1)
[2023-04-02] MEDS ORDERED: SODIUM BICARBONATE 8.4% INJ 50 ML SYR IV STA (21:35)
[2023-04-02] MEDS ORDERED: DEXTROSE 50% SYRINGE 50 ML IV STA (21:35)
[2023-04-02] MEDS ORDERED: SODIUM BICARBONATE 8.4% SYRING 50 ML ONE (21:40)
[2023-04-02] MEDS ORDERED: DEXTROSE 50% SYRINGE 50 ML IV ONE (21:41)
[2023-04-02] MEDS ORDERED: INSULIN REGULAR, HUMAN 100 UNIT/1 ML ONE (21:41)
[2023-04-02] MEDS ORDERED: CALCIUM GLUC 1 G/50 ML NACL 50 ML IV ONE ×4 (21:41→22:00)
[2023-04-02] MEDS ORDERED: CALCIUM GLUCONATE 10% INJ 13.95 MEQ in SODIUM CHLORIDE 0.9% 100 ML IV ONE (21:45)
[2023-04-02] MEDS ORDERED: INSULIN REGULAR, HUMAN 100 UNIT/1 ML IV ONE (21:45)
[2023-04-02] MEDS ORDERED: CALCIUM GLUC 1 G/50 ML NACL 100 ML IV ONE (21:55)
[2023-04-02] MEDS ORDERED: ALBUTEROL SULF 0.083% NEB SOLN 3 ML NEB NEB STA (21:58)
[2023-04-02] MEDS ORDERED: ONDANSETRON HCL INJ 2MG/ML 2ML 2 MG/ML VIAL IV PRN (22:00)
[2023-04-02] MEDS ORDERED: FUROSEMIDE INJ 10 MG/ML 2 ML VIAL IV ONE (22:00)
[2023-04-02] MEDS ORDERED: ASPIRIN 81 MG CHEW TAB PO ONE (22:00)
[2023-04-02] MEDS ORDERED: CEFTRIAXONE 1 GM VIAL ONE (22:07)
[2023-04-02 23:09] VITALS: BP 128/60; PULSE 80; RESP 30; TEMP 97.9
[2023-04-02 23:15] VITALS: BP 128/60; PULSE 80; RESP 30; TEMP 97.9; O2SAT 100
[2023-04-02 23:19] VITALS: PULSE 84; RESP 20; RESP 26; O2SAT 100
[2023-04-02] MEDS ORDERED: POTASSIUM CHLO20 ME1 PO (23:19)
[2023-04-02] MEDS ORDERED: FUROSEMIDE40 MG PO (23:19)
[2023-04-02] MEDS ORDERED: LISINOPRIL2.5 MG PO (23:19)
[2023-04-02] MEDS ORDERED: ATORVASTATIN CA20 MG PO (23:19)
[2023-04-02] MEDS ORDERED: OMEPRAZOLE40 MG PO (23:19)
[2023-04-02] MEDS ORDERED: MELOXICAM15 MG PO (23:19)
[2023-04-02] MEDS ORDERED: BUMETANIDE1 MG PO (23:19)
[2023-04-02] MEDS ORDERED: CARVEDILOL3.125 MG PO (23:19)
[2023-04-02] MEDS ORDERED: ALBUTEROL SULF 0.083% NEB SOLN 3 ML NEB ONE (23:35)
[2023-04-03] VITALS (26 sets, daily range): BP systolic 79–124; BP diastolic 35–84; PULSE 45–91; RESP 14–28; TEMP 97.7–99; O2SAT 98–100
[2023-04-03] MEDS: SODIUM CHLORIDE 0.9% 1000ML 1,000 ML IV SCH ×2 (00:19→11:19)
[2023-04-03] MEDS ORDERED: FUROSEMIDE INJ 10 MG/ML 2 ML VIAL IV ONE (01:00)
[2023-04-03 05:57] LABS: BASOPHILS % 0.3 % (0.0-1.0); EOSINOPHILS % 0.3 % (0.0-6.0); HEMATOCRIT 29.1 % (34.2-44.1); HEMOGLOBIN 9.3 g/dL (12.0-16.0); LYMPHOCYTES # (AUTO) 0.7 (1.0-3.2); LYMPHOCYTES % 6.3 % (18.0-39.1); MEAN CORPUSCULAR HEMOGLOBIN 33.3 pg (28-32); MEAN CORPUSCULAR VOLUME 104.3 fL (81-99); MONOCYTES # (AUTO) 0.7 (0.2-0.8); MONOCYTES % 6.6 % (4.4-11.3); NEUTROPHILS # (AUTO) 8.9 (2.1-6.9); NEUTROPHILS % 86.2 % (38.7-80.0); PLATELET COUNT 186 x10e3/uL (140-360); RED BLOOD COUNT 2.79 x10e6/uL (3.6-5.1); RED CELL DISTRIBUTION WIDTH 13.9 % (11.7-14.4); WHITE BLOOD COUNT 10.36 x10e3/uL (4.8-10.8)
[2023-04-03 06:26] LABS: ALBUMIN 3.6 g/dL (3.5-5.0); ALBUMIN/GLOBULIN RATIO 1.2 (0.8-2.0); ANION GAP 17.8 mmol/L (8-16); CALCIUM 10.2 mg/dL (8.4-10.2); CREATININE, SERUM 1.65 mg/dL (0.57-1.11); POTASSIUM 5.8 mmol/L (3.5-5.1)
[2023-04-03] MEDS ORDERED: SOD POLYSTYRENE SULFONATE SUSP 15 GM/60 ML BTL PO ONE (12:25)
[2023-04-03 12:57] LABS: CREATININE, SERUM 1.43 mg/dL (0.57-1.11)
[2023-04-03] MEDS: CARVEDILOL 3.125 MG TAB PO SCH (16:17)
[2023-04-03] MEDS: ATORVASTATIN 20 MG TAB PO SCH (20:04)
[2023-04-04] VITALS (24 sets, daily range): BP systolic 82–131; BP diastolic 44–101; PULSE 72–95; RESP 13–35; TEMP 97.3–98.1; O2SAT 96–100
[2023-04-04 05:15] LABS: BASOPHILS % 0.6 % (0.0-1.0); EOSINOPHILS # (AUTO) 0.2 (0.0-0.4); EOSINOPHILS % 2.4 % (0.0-6.0); HEMATOCRIT 27.5 % (34.2-44.1); HEMOGLOBIN 8.8 g/dL (12.0-16.0); LYMPHOCYTES # (AUTO) 1.2 (1.0-3.2); LYMPHOCYTES % 18.1 % (18.0-39.1); MEAN CORPUSCULAR HEMOGLOBIN 33.3 pg (28-32); MEAN CORPUSCULAR VOLUME 104.2 fL (81-99); MONOCYTES # (AUTO) 0.5 (0.2-0.8); MONOCYTES % 8.5 % (4.4-11.3); NEUTROPHILS # (AUTO) 4.5 (2.1-6.9); NEUTROPHILS % 70.1 % (38.7-80.0); PLATELET COUNT 185 x10e3/uL (140-360); RED BLOOD COUNT 2.64 x10e6/uL (3.6-5.1); RED CELL DISTRIBUTION WIDTH 14.4 % (11.7-14.4); WHITE BLOOD COUNT 6.36 x10e3/uL (4.8-10.8)
[2023-04-04 05:27] LABS: CALCIUM 9.2 mg/dL (8.4-10.2); CREATININE, SERUM 1.31 mg/dL (0.57-1.11)
[2023-04-04 06:17] LABS: MAGNESIUM 1.5 MG/DL (1.3-2.1); PHOSPHORUS 3.6 MG/DL (2.3-4.7)
[2023-04-04 06:37] LABS: THYROID STIMULATING HORMONE 1.832 uIU/mL (0.350-4.940)
[2023-04-04 08:30] LABS: SODIUM,URINE 76 mmol/L
[2023-04-04 10:06] LABS: EOSINOPHIL SMEAR,URINE NONE SEEN (NONE SEEN)
[2023-04-04] MEDS: PANTOPRAZOLE SOD 40 MG TABEC PO SCH (10:26)
[2023-04-04] MEDS: CARVEDILOL 3.125 MG TAB PO SCH ×2 (10:26→18:27)
[2023-04-04] MEDS: DEXTROSE 5%/0.45% SOD CHL 1,000 ML IV SCH ×2 (10:27→23:20)
[2023-04-04] MEDS: ALLOPURINOL 100 MG TAB PO SCH (10:29)
[2023-04-04] MEDS ORDERED: ENOXAPARIN SOD INJ 40 MG/0.4 ML SYR SC SCH (17:00)
[2023-04-04] MEDS: MEGESTROL ACETATE 40 MG TAB PO SCH (18:27)
[2023-04-04] MEDS: ENOXAPARIN 30 MG/0.3 ML SYR SC SCH (18:28)
[2023-04-04] MEDS: ATORVASTATIN 20 MG TAB PO SCH (20:37)
[2023-04-05] VITALS (7 sets, daily range): BP systolic 87–133; BP diastolic 48–75; PULSE 62–96; RESP 16–20; TEMP 97.2–98.1; O2SAT 89–100
[2023-04-05 06:42] LABS: BASOPHILS % 0.5 % (0.0-1.0); EOSINOPHILS # (AUTO) 0.2 (0.0-0.4); EOSINOPHILS % 2.6 % (0.0-6.0); HEMATOCRIT 29.7 % (34.2-44.1); HEMOGLOBIN 9.6 g/dL (12.0-16.0); LYMPHOCYTES # (AUTO) 1.2 (1.0-3.2); LYMPHOCYTES % 18.9 % (18.0-39.1); MEAN CORPUSCULAR HEMOGLOBIN 33.6 pg (28-32); MEAN CORPUSCULAR HGB CONC 32.3 g/dL (31-35); MEAN CORPUSCULAR VOLUME 103.8 fL (81-99); MONOCYTES # (AUTO) 0.6 (0.2-0.8); NEUTROPHILS # (AUTO) 4.5 (2.1-6.9); NEUTROPHILS % 68.8 % (38.7-80.0); PLATELET COUNT 198 x10e3/uL (140-360); RED BLOOD COUNT 2.86 x10e6/uL (3.6-5.1); RED CELL DISTRIBUTION WIDTH 13.9 % (11.7-14.4); WHITE BLOOD COUNT 6.55 x10e3/uL (4.8-10.8)
[2023-04-05 07:03] LABS: ANION GAP 14.2 mmol/L (8-16); CALCIUM 9.6 mg/dL (8.4-10.2); CREATININE, SERUM 1.02 mg/dL (0.57-1.11); POTASSIUM 4.2 mmol/L (3.5-5.1)
[2023-04-05 07:21] LABS: MAGNESIUM 1.4 MG/DL (1.3-2.1); PHOSPHORUS 2.9 MG/DL (2.3-4.7)
[2023-04-05 09:01] LABS: CREATININE,URINE RANDOM 29.62 mg/dL (47-110)
[2023-04-05] MEDS: MULTIVITAMINS/MINERALS TAB PO SCH (09:23)
[2023-04-05] MEDS: PANTOPRAZOLE SOD 40 MG TABEC PO SCH (09:23)
[2023-04-05] MEDS: ALLOPURINOL 100 MG TAB PO SCH (09:23)
[2023-04-05] MEDS: MEGESTROL ACETATE 40 MG TAB PO SCH ×2 (09:23→16:54)
[2023-04-05] MEDS: CARVEDILOL 3.125 MG TAB PO SCH ×2 (09:24→16:55)
[2023-04-05] MEDS: DEXTROSE 5%/0.45% SOD CHL 1,000 ML IV SCH (11:40)
[2023-04-05] MEDS ORDERED: MAGNESIUM SULFATE 2GM/50ML 50 ML IV ONE ×2 (15:00→17:00)
[2023-04-05] MEDS: ENOXAPARIN 30 MG/0.3 ML SYR SC SCH (16:55)
[2023-04-05] MEDS ORDERED: ONDANSETRON HCL 4 MG ORAL DISINTEGRATING TAB PO PRN (17:00)
[2023-04-05] MEDS: ATORVASTATIN 20 MG TAB PO SCH (21:35)
[2023-04-06] VITALS: BP 89/50; PULSE 85; RESP 16; TEMP 98; O2SAT 94
[2023-04-06] MEDS: DEXTROSE 5%/0.45% SOD CHL 1,000 ML IV SCH ×2 (02:54→15:50)
[2023-04-06 05:45] LABS: BASOPHILS % 0.6 % (0.0-1.0); EOSINOPHILS # (AUTO) 0.3 (0.0-0.4); EOSINOPHILS % 4.3 % (0.0-6.0); HEMATOCRIT 28.9 % (34.2-44.1); HEMOGLOBIN 9.3 g/dL (12.0-16.0); LYMPHOCYTES # (AUTO) 1.3 (1.0-3.2); LYMPHOCYTES % 18.8 % (18.0-39.1); MEAN CORPUSCULAR HEMOGLOBIN 33.2 pg (28-32); MEAN CORPUSCULAR HGB CONC 32.2 g/dL (31-35); MEAN CORPUSCULAR VOLUME 103.2 fL (81-99); MONOCYTES # (AUTO) 0.8 (0.2-0.8); MONOCYTES % 12.1 % (4.4-11.3); NEUTROPHILS # (AUTO) 4.3 (2.1-6.9); NEUTROPHILS % 64.1 % (38.7-80.0); PLATELET COUNT 172 x10e3/uL (140-360)
[2023-04-06 05:47] VITALS: BP 111/60; PULSE 78; RESP 18; TEMP 97.7; O2SAT 94
[2023-04-06 06:24] LABS: ANION GAP 10.3 mmol/L (8-16); CALCIUM 8.5 mg/dL (8.4-10.2); CREATININE, SERUM 0.99 mg/dL (0.57-1.11); MAGNESIUM 2.6 MG/DL (1.3-2.1); POTASSIUM 4.3 mmol/L (3.5-5.1)
[2023-04-06] MEDS: ALLOPURINOL 100 MG TAB PO SCH (08:37)
[2023-04-06] MEDS ORDERED: ONDANSETRON ODT4 MG PO (08:37)
[2023-04-06] MEDS ORDERED: MEGESTROL ACETA40 MG PO (08:37)
[2023-04-06] MEDS ORDERED: Multivitamins/Minerals PO (08:37)
[2023-04-06] MEDS ORDERED: SENNA LAX8.6 MG PO (08:37)
[2023-04-06 09:00] VITALS: BP 112/62; PULSE 78; RESP 16; TEMP 97.9; O2SAT 100
[2023-04-06] MEDS: PANTOPRAZOLE SOD 40 MG TABEC PO SCH (09:43)
[2023-04-06] MEDS: MEGESTROL ACETATE 40 MG TAB PO SCH ×2 (09:43→16:59)
[2023-04-06] MEDS: CARVEDILOL 3.125 MG TAB PO SCH ×2 (09:43→16:58)
[2023-04-06] MEDS: MULTIVITAMINS/MINERALS TAB PO SCH (09:44)
[2023-04-06 10:33] VITALS: BP 112/62; PULSE 78; RESP 16; TEMP 97.9; O2SAT 100
[2023-04-06 14:58] VITALS: BP 101/53; PULSE 88; RESP 15; TEMP 97.4; O2SAT 94
[2023-04-06] MEDS: ENOXAPARIN 30 MG/0.3 ML SYR SC SCH (16:57)
[2023-04-06 16:58] VITALS: BP 93/52; PULSE 82
== END 2023-04-06 18:12 | disposition home or self-care (01) | DRG 682 ==
LOC: ER 19:52 → ERHOLD 21:58 → ICU 23:10 → MED/SURG3 04-04 21:20
PROVIDERS: ADMIT Internal Medicine; ATTEND Internal Medicine
DX: N17.0 Acute kidney failure with tubular necrosis (principal); E43 Unspecified severe protein-calorie malnutrition; N39.0 Urinary tract infection, site not specified; I13.0 Hypertensive heart and chronic kidney disease with heart failure and stage 1 through stage 4 chronic kidney disease, or unspecified chronic kidney disease; R64 Cachexia; Z68.1 Body mass index [BMI] 19.9 or less, adult; E87.1 Hypo-osmolality and hyponatremia; E87.5 Hyperkalemia; R62.7 Adult failure to thrive; E86.0 Dehydration; F01.50 Vascular dementia, unspecified severity, without behavioral disturbance, psychotic disturbance, mood disturbance, and anxiety; R63.0 Anorexia; N18.9 Chronic kidney disease, unspecified; I50.9 Heart failure, unspecified; D53.9 Nutritional anemia, unspecified; E83.42 Hypomagnesemia; E79.0 Hyperuricemia without signs of inflammatory arthritis and tophaceous disease; R53.1 Weakness; Z95.810 Presence of automatic (implantable) cardiac defibrillator; Z20.822 Contact with and (suspected) exposure to COVID-19
CPT/HCPCS: 36415; 70450; 71045; 76770; 80048; 80053; 81001; 81015; 81161; 81220; 82550; 82575; 82607; 82728; 82948; 83540; 83735; 84100; 84300; 84443; 84466; 84484; 84550; 85025; 93005; 94640; 94799; 99252; 99284; J0612; J0696; J1650; J1940; J3475; J7030; J7040; J7050; J7799; U0002

== ENCOUNTER 2024-08-02 19:24 | Inpatient (IN) | payer MEDICARE ==
[~2024-08-02] VITALS: Ht 152.4 cm; Wt 32.7 kg
[2024-08-02 19:24] VITALS: PULSE 58; RESP 18; TEMP 98.3
[~2024-08-02 19:24] MED LIST changes: +ASPIRIN EC81 MG PO; +ATORVASTATIN CA20 MG PO; +BUMETANIDE1 MG PO; +CARVEDILOL3.125 MG PO; +EXELON1 EACH TD; +FUROSEMIDE40 MG PO; +LISINOPRIL2.5 MG PO; +MEGESTROL ACETA40 MG PO; +MELOXICAM15 MG PO; +Multivitamins/Minerals PO; +OMEPRAZOLE40 MG PO; +ONDANSETRON ODT4 MG PO; +PLAVIX75 MG PO; +POTASSIUM CHLO20 ME1 PO; +SENNA LAX8.6 MG PO
[2024-08-02 20:07] LABS: BASOPHILS % 0.4 % (0.0-1.0); EOSINOPHILS # (AUTO) 0.1 (0.0-0.4); EOSINOPHILS % 3.1 % (0.0-6.0); HEMATOCRIT 28.9 % (34.2-44.1); HEMOGLOBIN 8.7 g/dL (12.0-16.0); LYMPHOCYTES # (AUTO) 1.1 (1.0-3.2); MEAN CORPUSCULAR HEMOGLOBIN 33.1 pg (28-32); MEAN CORPUSCULAR HGB CONC 30.1 g/dL (31-35); MEAN CORPUSCULAR VOLUME 109.9 fL (81-99); MONOCYTES # (AUTO) 0.6 (0.2-0.8); MONOCYTES % 12.2 % (4.4-11.3); NEUTROPHILS # (AUTO) 2.8 (2.1-6.9); NEUTROPHILS % 60.1 % (38.7-80.0); PLATELET COUNT 194 x10e3/uL (140-360); RED BLOOD COUNT 2.63 x10e6/uL (3.6-5.1); RED CELL DISTRIBUTION WIDTH 14.5 % (11.7-14.4); WHITE BLOOD COUNT 4.58 x10e3/uL (4.8-10.8)
[2024-08-02 20:22] LABS: INR 0.98; PROTHROMBIN TIME 13.6 seconds (11.9-14.5)
[2024-08-02] MEDS: SODIUM CHLORIDE 0.9% 1000ML 1,000 ML IV STA (20:29)
[2024-08-02 20:32] LABS: ALBUMIN 4.1 g/dL (3.5-5.0); ALBUMIN/GLOBULIN RATIO 1.1 (0.8-2.0); ANION GAP 16.9 mmol/L (8-16); BILIRUBIN,TOTAL 0.6 mg/dL (0.2-1.2); CALCIUM 9.3 mg/dL (8.4-10.2); CREATININE, SERUM 1.59 mg/dL (0.57-1.11); POTASSIUM 4.9 mmol/L (3.5-5.1); TOTAL PROTEIN 7.8 g/dL (6.5-8.1)
[2024-08-02 20:33] LABS: B-TYPE NATRIURETIC PEPTIDE2 1168.9 pg/mL (0-100)
[2024-08-02 20:37] LABS: TROPONIN I 0.048 ng/mL (0-0.300)
[2024-08-02] MEDS: ASPIRIN 325 MG TAB PO STA (20:53)
[2024-08-02 21:19] LABS: BILIRUBIN,URINE NEGATIVE (NEGATIVE); CLARITY,URINE CLEAR (CLEAR); COLOR,URINE YELLOW (YELLOW); GLUCOSE, URINE NEGATIVE (NEGATIVE); KETONES,URINE NEGATIVE (NEGATIVE); LEUKOCYTE ESTERASE ,URINE NEGATIVE (NEGATIVE); NITRITE,URINE NEGATIVE (NEGATIVE); PH,URINE 6.5 (5 - 7); PROTEIN,URINE DIPSTICK NEGATIVE (NEGATIVE); URINE UROBILINOGEN 2 mg/dL (0.2 - 1)
[2024-08-02 21:23] LABS: WBC,URINE (MAN) 0-5 /HPF (0-5)
[2024-08-02 21:24] LABS: BACTERIA,URINE MODERATE /HPF; EPITHELIAL CELLS,URINE MANY /LPF; RBC,URINE 0-5 /HPF (0-5)
[2024-08-02] MEDS ORDERED: ASPIRIN 325 MG TAB PO STA (21:27)
[2024-08-02] MEDS ORDERED: ONDANSETRON HCL INJ 2MG/ML 2ML 2 MG/ML VIAL IV PRN (21:30)
[2024-08-02 23:20] VITALS: BP 130/72; PULSE 87; RESP 20; TEMP 97.7; O2SAT 97
[2024-08-02] MEDS: SODIUM CHLORIDE 0.9% 1000ML 1,000 ML IV SCH (23:31)
[2024-08-03] VITALS (10 sets, daily range): BP systolic 98–130; BP diastolic 67–75; PULSE 78–89; RESP 16–20; TEMP 97.3–98.4; O2SAT 94–100
[2024-08-03 06:22] LABS: BASOPHILS % 0.4 % (0.0-1.0); EOSINOPHILS # (AUTO) 0.2 (0.0-0.4); EOSINOPHILS % 2.8 % (0.0-6.0); HEMATOCRIT 27.6 % (34.2-44.1); HEMOGLOBIN 8.1 g/dL (12.0-16.0); LYMPHOCYTES % 17.3 % (18.0-39.1); MEAN CORPUSCULAR HEMOGLOBIN 32.5 pg (28-32); MEAN CORPUSCULAR HGB CONC 29.3 g/dL (31-35); MEAN CORPUSCULAR VOLUME 110.8 fL (81-99); MONOCYTES # (AUTO) 0.6 (0.2-0.8); MONOCYTES % 10.9 % (4.4-11.3); NEUTROPHILS # (AUTO) 3.8 (2.1-6.9); NEUTROPHILS % 68.2 % (38.7-80.0); PLATELET COUNT 162 x10e3/uL (140-360); RED BLOOD COUNT 2.49 x10e6/uL (3.6-5.1); RED CELL DISTRIBUTION WIDTH 14.5 % (11.7-14.4); WHITE BLOOD COUNT 5.62 x10e3/uL (4.8-10.8)
[2024-08-03 06:39] LABS: ALBUMIN 3.3 g/dL (3.5-5.0); ALBUMIN/GLOBULIN RATIO 1.3 (0.8-2.0); ANION GAP 12.4 mmol/L (8-16); BILIRUBIN,TOTAL 0.7 mg/dL (0.2-1.2); CALCIUM 8.5 mg/dL (8.4-10.2); CREATININE, SERUM 1.03 mg/dL (0.57-1.11); POTASSIUM 4.4 mmol/L (3.5-5.1); TOTAL PROTEIN 5.9 g/dL (6.5-8.1)
[2024-08-03 06:47] LABS: TROPONIN I 0.086 ng/mL (0-0.300)
[2024-08-03] MEDS ORDERED: ALBUTEROL/IPRATROPIUM 3 ML NEB NEB PRN (08:00)
[2024-08-03] MEDS ORDERED: DOCUSATE SODIUM 100 MG CAP PO PRN (08:00)
[2024-08-03] MEDS ORDERED: METOPROLOL TARTRATE INJ 1 MG/ML VIAL IV PRN (08:00)
[2024-08-03] MEDS ORDERED: ACETAMINOPHEN 325 MG TAB PO PRN (08:00)
[2024-08-03] MEDS ORDERED: ASPIRIN 325 MG TAB EC PO SCH (09:00)
[2024-08-03] MEDS: CARVEDILOL 3.125 MG TAB PO SCH (09:00)
[2024-08-03] MEDS: SENNOSIDES 8.6 MG TAB PO SCH (09:17)
[2024-08-03] MEDS: PANTOPRAZOLE SOD 40 MG TABEC PO SCH (09:17)
[2024-08-03] MEDS: ASPIRIN 81 MG ENTERIC COATED PO SCH (09:18)
[2024-08-03] MEDS: CLOPIDOGREL BISULFATE 75 MG TAB PO SCH (09:18)
[2024-08-03 14:15] LABS: TROPONIN I 0.068 ng/mL (0-0.300)
[2024-08-03] MEDS: ENOXAPARIN 30 MG/0.3 ML SYR SC SCH (16:46)
[2024-08-03] MEDS ORDERED: ENOXAPARIN SOD INJ 40 MG/0.4 ML SYR SC SCH (17:00)
[2024-08-03] MEDS: ATORVASTATIN 20 MG TAB PO SCH (21:19)
[2024-08-04] VITALS (9 sets, daily range): BP systolic 104–119; BP diastolic 64–85; PULSE 80–96; RESP 16–20; TEMP 97.1–98.1; O2SAT 95–100
[2024-08-04 13:10] LABS: FERRITIN 1464.01 ng/mL (4.63-204.00)
[2024-08-04 18:11] LABS: CORONAVIRUS COVID-19 AG NEGATIVE (NEGATIVE); INFLUENZA A AG NEGATIVE (NEGATIVE); INFLUENZA B AG NEGATIVE (NEGATIVE)
[2024-08-05] VITALS (9 sets, daily range): BP systolic 106–131; BP diastolic 63–80; PULSE 76–87; RESP 15–20; TEMP 97.3–98.1; O2SAT 95–100
[2024-08-05 10:48] LABS: BASOPHILS % 0.4 % (0.0-1.0); EOSINOPHILS # (AUTO) 0.2 (0.0-0.4); EOSINOPHILS % 3.2 % (0.0-6.0); HEMATOCRIT 27.8 % (34.2-44.1); HEMOGLOBIN 8.3 g/dL (12.0-16.0); LYMPHOCYTES # (AUTO) 0.6 (1.0-3.2); LYMPHOCYTES % 10.1 % (18.0-39.1); MEAN CORPUSCULAR HEMOGLOBIN 33.3 pg (28-32); MEAN CORPUSCULAR HGB CONC 29.9 g/dL (31-35); MEAN CORPUSCULAR VOLUME 111.6 fL (81-99); MONOCYTES # (AUTO) 0.5 (0.2-0.8); MONOCYTES % 9.1 % (4.4-11.3); NEUTROPHILS # (AUTO) 4.3 (2.1-6.9); NEUTROPHILS % 76.8 % (38.7-80.0); PLATELET COUNT 152 x10e3/uL (140-360); RED BLOOD COUNT 2.49 x10e6/uL (3.6-5.1); RED CELL DISTRIBUTION WIDTH 14.2 % (11.7-14.4); WHITE BLOOD COUNT 5.63 x10e3/uL (4.8-10.8)
[2024-08-05 11:02] LABS: ANION GAP 15.8 mmol/L (8-16); CREATININE, SERUM 0.85 mg/dL (0.57-1.11); MAGNESIUM 1.8 MG/DL (1.3-2.1); PHOSPHORUS 3.5 MG/DL (2.3-4.7); POTASSIUM 4.8 mmol/L (3.5-5.1)
[2024-08-06] VITALS: BP 131/77; PULSE 76; RESP 15; TEMP 98.1; O2SAT 98
[2024-08-06] MEDS: MELATONIN 3 MG TAB PO PRN (00:51)
[2024-08-06] MEDS ORDERED: CEPHALEXIN500 MG PO (04:58)
[2024-08-06] MEDS: ALPRAZOLAM 0.25 MG TAB PO PRN (06:04)
[2024-08-06 06:24] VITALS: PULSE 80; RESP 22; O2SAT 96
[2024-08-06 07:56] VITALS: BP 105/59; PULSE 68; RESP 19; TEMP 97.7; O2SAT 98
[2024-08-06 08:00] VITALS: BP 105/59; PULSE 68; RESP 19; TEMP 97.7; O2SAT 98
[2024-08-06 09:28] LABS: CHOL/HDL RATIO 3.6 (3.0-3.6)
[2024-08-06 12:29] VITALS: BP 115/69; PULSE 69; RESP 18; TEMP 98.8; O2SAT 99
[2024-08-06 15:55] VITALS: BP 133/77; PULSE 74; RESP 19; TEMP 97; O2SAT 100
== END 2024-08-06 15:08 | disposition home health service (06) | DRG 64 ==
LOC: ER 19:25 → ERHOLD 21:29 → MED/SURG3 23:13
PROVIDERS: ADMIT Internal Medicine; ATTEND Internal Medicine
DX: I63.9 Cerebral infarction, unspecified (principal); G93.41 Metabolic encephalopathy; N39.0 Urinary tract infection, site not specified; I50.22 Chronic systolic (congestive) heart failure; E87.0 Hyperosmolality and hypernatremia; N17.9 Acute kidney failure, unspecified; I27.20 Pulmonary hypertension, unspecified; I11.0 Hypertensive heart disease with heart failure; R29.810 Facial weakness; R47.81 Slurred speech; F03.90 Unspecified dementia, unspecified severity, without behavioral disturbance, psychotic disturbance, mood disturbance, and anxiety; E78.5 Hyperlipidemia, unspecified; D50.9 Iron deficiency anemia, unspecified; I07.1 Rheumatic tricuspid insufficiency; E04.1 Nontoxic single thyroid nodule; M19.90 Unspecified osteoarthritis, unspecified site; R29.704 NIHSS score 4; I69.320 Aphasia following cerebral infarction; Z11.52 Encounter for screening for COVID-19; Z79.82 Long term (current) use of aspirin; Z95.810 Presence of automatic (implantable) cardiac defibrillator; Z88.0 Allergy status to penicillin; Z88.5 Allergy status to narcotic agent
CPT/HCPCS: 36415; 70450; 70496; 70498; 71045; 80048; 80053; 80061; 81001; 82550; 82607; 82728; 83540; 83690; 83735; 83880; 84100; 84466; 84484; 85025; 85610; 93005; 93306; 94799; 95819; 99252; 99284; J0696; J1650; J7030